=== PATIENT | male | born 1940 | race Caucasian/White ===

== ENCOUNTER 2017-06-06 01:16 | Inpatient (IN) | payer MEDICARE, OTHER, MEDICAID ==
[2017-06-06] MEDS: ONDANSETRON 4 MG INJ IV (02:00)
[2017-06-06] MEDS: SOD CHLORIDE 0.9% 1,000 ML IV ×2 (02:00→07:14)
[2017-06-06] MEDS: morphine 4 MG/ML VIAL IV (02:00)
[2017-06-06 03:02] LABS: ADD MAN DIFF? NO
[2017-06-06 03:06] LABS: WHITE BLOOD COUNT 8.7 10^3/ul (4.8-10.8)
[2017-06-06 03:06] LABS: BASOPHIL # 0.1 10^3/ul (0.0-0.1); BASOPHILS % 0.6 % (0.0-2.0); EOSINOPHILS # 1.4 10^3/ul (0.0-0.5); EOSINOPHILS % 16.1 % (0.0-7.0); HEMATOCRIT 41.7 % (42.0-52.0); LYMPHOCYTES # 1.5 10^3/ul (0.8-2.9); LYMPHOCYTES % 17.5 % (15.0-51.0); MEAN CORPUSCULAR HGB CONC 33.6 g/dl (32.0-37.0); MEAN CORPUSCULAR VOLUME 98.3 fl (82.0-101.0); MEAN PLATELET VOLUME 11.2 fl (7.4-10.4); MONOCYTES % 10.9 % (0.0-11.0); NEUTROPHIL # 4.7 10^3/ul (1.6-7.5); NEUTROPHILS % 54.2 % (39.0-77.0); PLATELET COUNT 198 10^3/UL (140-415); RED BLOOD COUNT 4.24 10^6/ul (4.70-6.10); RED CELL DISTRIBUTION WIDTH 21.9 % (11.5-14.5)
[2017-06-06 03:28] LABS: INR 1.42; PROTIME 17.6 Sec (11.9-14.9); PT RATIO 1.4
[2017-06-06 03:29] LABS: PARTIAL THROMBOPLASTIN TIME 31.7 Sec (25.0-35.0)
[2017-06-06 03:31] LABS: ANION GAP 17 (8-16); BLOOD UREA NITROGEN 17 mg/dl (7-20); CALCIUM 8.7 mg/dl (8.4-10.2); CARBON DIOXIDE 28 mmol/L (21-31); CHLORIDE 101 mmol/L (97-110); CREATININE 0.98 mg/dl (0.61-1.24); GLUCOSE 107 mg/dl (70-220); SODIUM 139 mmol/L (135-144)
[2017-06-06 03:34] LABS: LACTIC ACID 4.1 mmol/L (0.5-2.0)
[2017-06-06 03:36] LABS: POTASSIUM 7.2 mmol/L (3.5-5.1)
[2017-06-06 03:42] LABS: TROPONIN-I 0.041 ng/ml (0.00-0.12)
[2017-06-06] MEDS: FENTAnyl 50 MCG/ML VIAL IV (03:53)
[2017-06-06] MEDS: CALCIUM GLUCONATE 10% 1 GM in DEXTROSE 5% 100 ML IVPB (07:00)
[2017-06-06] MEDS: NA POLYST SULFON 15 GM/60 ML BTL PO (07:15)
[2017-06-06] MEDS: DILTIAZEM 25 MG INJ IV (07:15)
[2017-06-06] MEDS: DEXTROSE 50% 50 ML SYRINGE IV (07:15)
[2017-06-06] MEDS: ASPIRIN 81 MG TAB PO (07:16)
[2017-06-06] MEDS: INSULIN REGULAR, HUMAN 100 UNIT/1 ML 3ML VIAL IV (07:18)
[2017-06-06] MEDS ORDERED: ACETAMINOPHEN 325 MG TAB PO (07:30)
[2017-06-06] MEDS ORDERED: ONDANSETRON 4 MG INJ IV (07:30)
[2017-06-06 08:08] LABS: POTASSIUM 3.4 mmol/L (3.5-5.1)
[2017-06-06 08:11] LABS: CREATINE KINASE 50 IU/L (23-200)
[2017-06-06 08:23] LABS: B-TYPE NATRIURETIC PEPTIDE 8360 PG/ML (0-450); CK INDEX 3.7; TROPONIN-I 0.036 ng/ml (0.00-0.12)
[2017-06-06 08:26] LABS: CK-MB 1.84 ng/ml (0.0-2.4)
[2017-06-06 09:34] LABS: ADD UMIC YES; UR ASCORBIC ACID NEGATIVE (NEGATIVE); UR BILIRUBIN (Dip) NEGATIVE (NEGATIVE); UR BLOOD (Dip) NEGATIVE (NEGATIVE); UR CLARITY CLEAR (CLEAR); UR COLOR AMBER (YELLOW); UR GLUCOSE (Dip) 1+ mg/dL (NEGATIVE); UR KETONES (Dip) NEGATIVE (NEGATIVE); UR LEUKOCYTE ESTERASE (Dip) NEGATIVE Leu/ul (NEGATIVE); UR MUCUS FEW /HPF (NONE SEEN); UR NITRITE (Dip) NEGATIVE (NEGATIVE); UR RBC 1 /HPF (0-5); UR SPECIFIC GRAVITY (Dip) 1.019 (1.003-1.030); UR TOTAL PROTEIN (Dip) 1+ mg/dl (NEGATIVE); UR UROBILINOGEN (Dip) 2+ mg/dL (NEGATIVE); UR WBC 4 /HPF (0-5)
[2017-06-06 11:18] LABS: LACTIC ACID 2.5 mmol/L (0.5-2.0)
[2017-06-06] MEDS: ALBUTEROL/IPRATROPIUM (NEB) 3 ML AMP HHN ×3 (13:00→21:00)
[2017-06-06 13:19] LABS: CREATINE KINASE 53 IU/L (23-200)
[2017-06-06 13:20] LABS: ALANINE AMINOTRANSFERASE 82 IU/L (13-69); ALBUMIN 2.5 g/dl (3.3-4.9); ALKALINE PHOSPHATASE 116 IU/L (42-121); ASPARTATE AMINO TRANSFERASE 42 IU/L (15-46); BILIRUBIN,INDIRECT 1.1 mg/dl (0-1.1); BILIRUBIN,TOTAL 1.1 mg/dl (0.2-1.3); MAGNESIUM 1.2 mg/dl (1.7-2.5); PHOSPHORUS 2.7 mg/dl (2.5-4.9); TOTAL PROTEIN 5.5 g/dl (6.1-8.1)
[2017-06-06 13:31] LABS: CK INDEX 3.1; TROPONIN-I 0.024 ng/ml (0.00-0.12)
[2017-06-06 13:33] LABS: CK-MB 1.63 ng/ml (0.0-2.4)
[2017-06-06] MEDS: FUROSEMIDE 20 MG INJ IV (20:31)
[2017-06-06] MEDS: SALMETEROL/FLUTICASONE 250/50 INHA INH (21:46)
[2017-06-06] MEDS: APIXABAN 5 MG TABLET PO (21:47)
[2017-06-06] MEDS: ATORVASTATIN 10 MG TAB PO (21:47)
[2017-06-06] MEDS: METOPROLOL 50 MG TAB PO (21:47)
[2017-06-07] MEDS: DILTIAZEM 25 MG INJ IV (00:37)
[2017-06-07] MEDS: AMIODARONE 900 MG in DEXTROSE 5% 482 ML IV ×2 (00:56→21:27)
[2017-06-07] MEDS: ALBUTEROL/IPRATROPIUM (NEB) 3 ML AMP HHN ×5 (01:00→20:31)
[2017-06-07] MEDS: CYANOCOBALAMIN 100 MCG TAB PO (09:00)
[2017-06-07] MEDS: TIOTROPIUM 18 MCG CAPSULE INHA DEV INH (09:00)
[2017-06-07] MEDS ORDERED: FUROSEMIDE 20 MG TAB PO (09:00)
[2017-06-07] MEDS: SALMETEROL/FLUTICASONE 250/50 INHA INH ×2 (09:00→20:38)
[2017-06-07] MEDS: FUROSEMIDE 20 MG INJ IV ×2 (09:40→17:52)
[2017-06-07] MEDS: PANTOPRAZOLE (EC) 40 MG TAB PO (09:40)
[2017-06-07] MEDS: APIXABAN 5 MG TABLET PO (09:41)
[2017-06-07] MEDS: METOPROLOL 50 MG TAB PO (09:41)
[2017-06-07 12:51] LABS: ADD MAN DIFF? NO
[2017-06-07 12:54] LABS: ABNORMAL IP MESSAGE 1; BASOPHIL # 0.1 10^3/ul (0.0-0.1); BASOPHILS % 0.6 % (0.0-2.0); EOSINOPHILS # 1.8 10^3/ul (0.0-0.5); EOSINOPHILS % 18.1 % (0.0-7.0); HEMATOCRIT 37.3 % (42.0-52.0); HEMOGLOBIN 12.4 g/dl (14.0-18.0); LYMPHOCYTES # 1.5 10^3/ul (0.8-2.9); LYMPHOCYTES % 15.3 % (15.0-51.0); MEAN CORPUSCULAR HEMOGLOBIN 32.9 pg (29.0-33.0); MEAN CORPUSCULAR HGB CONC 33.2 g/dl (32.0-37.0); MEAN CORPUSCULAR VOLUME 98.9 fl (82.0-101.0); MEAN PLATELET VOLUME 11.5 fl (7.4-10.4); MONOCYTE # 0.9 10^3/ul (0.3-0.9); MONOCYTES % 9.3 % (0.0-11.0); NEUTROPHIL # 5.5 10^3/ul (1.6-7.5); NEUTROPHILS % 56.2 % (39.0-77.0); PLATELET COUNT 169 10^3/UL (140-415); POSITIVE DIFF @See below; RED BLOOD COUNT 3.77 10^6/ul (4.70-6.10); RED CELL DISTRIBUTION WIDTH 22.5 % (11.5-14.5)
[2017-06-07 12:54] LABS: WHITE BLOOD COUNT 9.7 10^3/ul (4.8-10.8)
[2017-06-07] MEDS: DIGOXIN 500 MCG INJ IV (13:08)
[2017-06-07] MEDS: FUROSEMIDE 40 MG INJ IM (13:08)
[2017-06-07] MEDS: FOLIC ACID 1 MG TAB PO (13:08)
[2017-06-07] MEDS: THIAMINE 100 MG TAB PO (13:09)
[2017-06-07] MEDS: DILTIAZEM (CD) 180 MG CAP PO (13:09)
[2017-06-07] MEDS: MONTELUKAST 10 MG TAB PO ×2 (13:10→20:36)
[2017-06-07] MEDS: SPIRONOLACTONE 25 MG TAB PO (13:10)
[2017-06-07 13:11] LABS: HEMOGLOBIN A1C 5.4 % (0-5.9)
[2017-06-07 13:13] LABS: ANION GAP 16 (8-16); BLOOD UREA NITROGEN 15 mg/dl (7-20); CALCIUM 8.6 mg/dl (8.4-10.2); CARBON DIOXIDE 24 mmol/L (21-31); CHLORIDE 103 mmol/L (97-110); CREATININE 0.96 mg/dl (0.61-1.24); GLUCOSE 134 mg/dl (70-220); POTASSIUM 3.6 mmol/L (3.5-5.1); SODIUM 139 mmol/L (135-144)
[2017-06-07] MEDS: POTASSIUM CHLORIDE (SR) 20 MEQ TAB PO (13:32)
[2017-06-07] MEDS: DIGOXIN 0.25 MG TAB PO (13:33)
[2017-06-07] MEDS: IBUPROFEN 600 MG TAB PO (15:17)
[2017-06-07] MEDS: ATORVASTATIN 10 MG TAB PO (20:36)
[2017-06-07] MEDS: METOPROLOL 25 MG TAB PO (20:39)
[2017-06-08] MEDS: PANTOPRAZOLE (EC) 40 MG TAB PO (05:31)
[2017-06-08] MEDS: FUROSEMIDE 20 MG INJ IV (05:37)
[2017-06-08] MEDS: ALBUTEROL/IPRATROPIUM (NEB) 3 ML AMP HHN ×2 (05:58→15:50)
[2017-06-08 07:50] LABS: ADD MAN DIFF? NO
[2017-06-08 08:01] LABS: ABNORMAL IP MESSAGE 1; BASOPHILS % 0.4 % (0.0-2.0); EOSINOPHILS % 21.9 % (0.0-7.0); HEMATOCRIT 32.2 % (42.0-52.0); HEMOGLOBIN 11.1 g/dl (14.0-18.0); LYMPHOCYTES % 21.7 % (15.0-51.0); MEAN CORPUSCULAR HEMOGLOBIN 33.5 pg (29.0-33.0); MEAN CORPUSCULAR HGB CONC 34.5 g/dl (32.0-37.0); MEAN CORPUSCULAR VOLUME 97.3 fl (82.0-101.0); MEAN PLATELET VOLUME 10.9 fl (7.4-10.4); MONOCYTE # 0.8 10^3/ul (0.3-0.9); MONOCYTES % 9.1 % (0.0-11.0); NEUTROPHIL # 4.2 10^3/ul (1.6-7.5); NEUTROPHILS % 46.3 % (39.0-77.0); PLATELET COUNT 150 10^3/UL (140-415); POSITIVE DIFF @See below; RED BLOOD COUNT 3.31 10^6/ul (4.70-6.10); RED CELL DISTRIBUTION WIDTH 22.2 % (11.5-14.5)
[2017-06-08] MEDS: SALMETEROL/FLUTICASONE 250/50 INHA INH ×2 (08:12→20:34)
[2017-06-08] MEDS: THIAMINE 100 MG TAB PO (08:13)
[2017-06-08] MEDS: FOLIC ACID 1 MG TAB PO (08:14)
[2017-06-08] MEDS: SPIRONOLACTONE 25 MG TAB PO (08:14)
[2017-06-08] MEDS: METOPROLOL 25 MG TAB PO ×2 (08:14→21:00)
[2017-06-08] MEDS: DILTIAZEM (CD) 180 MG CAP PO (08:14)
[2017-06-08 08:30] LABS: ANION GAP 13 (8-16); BLOOD UREA NITROGEN 17 mg/dl (7-20); CALCIUM 8.4 mg/dl (8.4-10.2); CARBON DIOXIDE 29 mmol/L (21-31); CHLORIDE 101 mmol/L (97-110); CREATININE 1.11 mg/dl (0.61-1.24); GLUCOSE 100 mg/dl (70-220); POTASSIUM 3.4 mmol/L (3.5-5.1); SODIUM 140 mmol/L (135-144)
[2017-06-08] MEDS: TIOTROPIUM 18 MCG CAPSULE INHA DEV INH (10:13)
[2017-06-08] MEDS: CYANOCOBALAMIN 100 MCG TAB PO (10:13)
[2017-06-08 11:40] LABS: LACTIC ACID 1.7 mmol/L (0.5-2.0)
[2017-06-08] MEDS: DIGOXIN 0.25 MG TAB PO (12:32)
[2017-06-08] MEDS: POTASSIUM CHLORIDE (SR) 20 MEQ TAB PO (14:03)
[2017-06-08] MEDS: FUROSEMIDE 20 MG TAB PO (14:04)
[2017-06-08] MEDS: MAGNESIUM SULFATE 6 GM in DEXTROSE 5% 100 ML IVPB (15:08)
[2017-06-08] MEDS: TESTOSTERONE CYPIONATE 200 MG/ML INJ IM (15:09)
[2017-06-08] MEDS: ATORVASTATIN 10 MG TAB PO (20:33)
[2017-06-08] MEDS: MONTELUKAST 10 MG TAB PO (20:33)
[2017-06-08] MEDS: IBUPROFEN 600 MG TAB PO (23:55)
[2017-06-09] MEDS: PANTOPRAZOLE (EC) 40 MG TAB PO (05:30)
[2017-06-09 07:27] LABS: ADD MAN DIFF? NO
[2017-06-09 07:30] LABS: ABNORMAL IP MESSAGE 1; BASOPHILS % 0.4 % (0.0-2.0); EOSINOPHILS # 2.2 10^3/ul (0.0-0.5); EOSINOPHILS % 28.2 % (0.0-7.0); HEMOGLOBIN 11.3 g/dl (14.0-18.0); LYMPHOCYTES # 1.3 10^3/ul (0.8-2.9); LYMPHOCYTES % 16.7 % (15.0-51.0); MEAN CORPUSCULAR HEMOGLOBIN 33.4 pg (29.0-33.0); MEAN CORPUSCULAR HGB CONC 34.2 g/dl (32.0-37.0); MEAN CORPUSCULAR VOLUME 97.6 fl (82.0-101.0); MEAN PLATELET VOLUME 10.9 fl (7.4-10.4); MONOCYTE # 0.8 10^3/ul (0.3-0.9); MONOCYTES % 10.6 % (0.0-11.0); NEUTROPHIL # 3.4 10^3/ul (1.6-7.5); NEUTROPHILS % 43.7 % (39.0-77.0); PLATELET COUNT 171 10^3/UL (140-415); POSITIVE DIFF @See below; RED BLOOD COUNT 3.38 10^6/ul (4.70-6.10); RED CELL DISTRIBUTION WIDTH 21.8 % (11.5-14.5)
[2017-06-09 07:30] LABS: WHITE BLOOD COUNT 7.8 10^3/ul (4.8-10.8)
[2017-06-09 07:59] LABS: ANION GAP 10 (8-16); BLOOD UREA NITROGEN 16 mg/dl (7-20); CALCIUM 8.4 mg/dl (8.4-10.2); CARBON DIOXIDE 29 mmol/L (21-31); CHLORIDE 101 mmol/L (97-110); CREATININE 0.88 mg/dl (0.61-1.24); GLUCOSE 87 mg/dl (70-220); POTASSIUM 4.1 mmol/L (3.5-5.1); SODIUM 136 mmol/L (135-144)
[2017-06-09 08:01] LABS: MAGNESIUM 1.7 mg/dl (1.7-2.5)
[2017-06-09] MEDS: DILTIAZEM (CD) 180 MG CAP PO (09:00)
[2017-06-09] MEDS: CYANOCOBALAMIN 100 MCG TAB PO (09:07)
[2017-06-09] MEDS: SPIRONOLACTONE 25 MG TAB PO (09:07)
[2017-06-09] MEDS: FUROSEMIDE 20 MG TAB PO (09:08)
[2017-06-09] MEDS: THIAMINE 100 MG TAB PO (09:08)
[2017-06-09] MEDS: TIOTROPIUM 18 MCG CAPSULE INHA DEV INH (09:08)
[2017-06-09] MEDS: FOLIC ACID 1 MG TAB PO (09:08)
[2017-06-09] MEDS: SALMETEROL/FLUTICASONE 250/50 INHA INH ×2 (09:09→21:11)
[2017-06-09] MEDS: METOPROLOL 25 MG TAB PO ×2 (09:11→21:12)
[2017-06-09] MEDS: DIGOXIN 0.25 MG TAB PO (12:28)
[2017-06-09] MEDS: FUROSEMIDE 40 MG INJ IV (15:41)
[2017-06-09] MEDS: predniSONE 50 MG TAB PO (15:41)
[2017-06-09] MEDS: ALBUTEROL/IPRATROPIUM (NEB) 3 ML AMP HHN ×2 (17:00→20:18)
[2017-06-09] MEDS: APIXABAN 5 MG TABLET PO (21:11)
[2017-06-09] MEDS: ATORVASTATIN 10 MG TAB PO (21:11)
[2017-06-09] MEDS: MONTELUKAST 10 MG TAB PO (21:11)
[2017-06-10] MEDS: ALBUTEROL/IPRATROPIUM (NEB) 3 ML AMP HHN ×6 (00:28→20:59)
[2017-06-10] MEDS: PANTOPRAZOLE (EC) 40 MG TAB PO (05:28)
[2017-06-10] MEDS: SALMETEROL/FLUTICASONE 250/50 INHA INH ×2 (09:25→21:36)
[2017-06-10] MEDS: FUROSEMIDE 20 MG TAB PO (09:26)
[2017-06-10] MEDS: FOLIC ACID 1 MG TAB PO (09:26)
[2017-06-10] MEDS: APIXABAN 5 MG TABLET PO ×2 (09:26→21:37)
[2017-06-10] MEDS: METOPROLOL 25 MG TAB PO ×2 (09:26→21:00)
[2017-06-10] MEDS: DILTIAZEM (CD) 180 MG CAP PO (09:27)
[2017-06-10] MEDS: predniSONE 50 MG TAB PO (09:27)
[2017-06-10] MEDS: CYANOCOBALAMIN 100 MCG TAB PO (09:27)
[2017-06-10] MEDS: THIAMINE 100 MG TAB PO (09:27)
[2017-06-10] MEDS: SPIRONOLACTONE 25 MG TAB PO (09:27)
[2017-06-10 09:30] LABS: ALANINE AMINOTRANSFERASE 47 IU/L (13-69); ALBUMIN 2.4 g/dl (3.3-4.9); ALBUMIN/GLOBULIN RATIO 0.75; ALKALINE PHOSPHATASE 100 IU/L (42-121); ANION GAP 10 (8-16); ASPARTATE AMINO TRANSFERASE 31 IU/L (15-46); BILIRUBIN,INDIRECT 0.5 mg/dl (0-1.1); BILIRUBIN,TOTAL 0.5 mg/dl (0.2-1.3); BLOOD UREA NITROGEN 17 mg/dl (7-20); CALCIUM 9.2 mg/dl (8.4-10.2); CARBON DIOXIDE 34 mmol/L (21-31); CHLORIDE 96 mmol/L (97-110); CREATININE 0.93 mg/dl (0.61-1.24); GLUCOSE 122 mg/dl (70-220); MAGNESIUM 1.4 mg/dl (1.7-2.5); POTASSIUM 4.1 mmol/L (3.5-5.1); SODIUM 136 mmol/L (135-144); TOTAL PROTEIN 5.6 g/dl (6.1-8.1)
[2017-06-10] MEDS: TIOTROPIUM 18 MCG CAPSULE INHA DEV INH (12:07)
[2017-06-10] MEDS: DIGOXIN 0.25 MG TAB PO (12:08)
[2017-06-10] MEDS: AMOXICILLIN/CLAV 875 MG TAB PO (17:45)
[2017-06-10] MEDS: ATORVASTATIN 10 MG TAB PO (21:37)
[2017-06-10] MEDS: MONTELUKAST 10 MG TAB PO (21:37)
[2017-06-11] MEDS: ALBUTEROL/IPRATROPIUM (NEB) 3 ML AMP HHN ×6 (00:47→20:31)
[2017-06-11] MEDS: PANTOPRAZOLE (EC) 40 MG TAB PO (05:30)
[2017-06-11] MEDS: predniSONE 50 MG TAB PO (09:35)
[2017-06-11] MEDS: APIXABAN 5 MG TABLET PO ×2 (09:35→21:10)
[2017-06-11] MEDS: CYANOCOBALAMIN 100 MCG TAB PO (09:35)
[2017-06-11] MEDS: THIAMINE 100 MG TAB PO (09:35)
[2017-06-11] MEDS: AMOXICILLIN/CLAV 875 MG TAB PO ×2 (09:35→21:10)
[2017-06-11] MEDS: METOPROLOL 25 MG TAB PO ×2 (09:36→21:00)
[2017-06-11] MEDS: SPIRONOLACTONE 25 MG TAB PO (09:36)
[2017-06-11] MEDS: FUROSEMIDE 20 MG TAB PO (09:36)
[2017-06-11] MEDS: FOLIC ACID 1 MG TAB PO (09:36)
[2017-06-11] MEDS: TIOTROPIUM 18 MCG CAPSULE INHA DEV INH (09:37)
[2017-06-11] MEDS: DILTIAZEM (CD) 180 MG CAP PO (09:37)
[2017-06-11] MEDS: SALMETEROL/FLUTICASONE 250/50 INHA INH ×2 (09:37→21:10)
[2017-06-11] MEDS ORDERED: ACETAMINOPHEN 325 MG TAB PO (11:30)
[2017-06-11] MEDS: IBUPROFEN 600 MG TAB PO (11:39)
[2017-06-11] MEDS: DIGOXIN 0.25 MG TAB PO (11:40)
[2017-06-11] MEDS: ATORVASTATIN 10 MG TAB PO (21:10)
[2017-06-11] MEDS: MONTELUKAST 10 MG TAB PO (21:10)
[2017-06-12] MEDS: ALBUTEROL/IPRATROPIUM (NEB) 3 ML AMP HHN ×6 (00:45→20:33)
[2017-06-12] MEDS: AMOXICILLIN/CLAV 875 MG TAB PO ×2 (09:44→21:01)
[2017-06-12] MEDS: METOPROLOL 25 MG TAB PO ×2 (09:44→21:02)
[2017-06-12] MEDS: FUROSEMIDE 20 MG TAB PO (09:45)
[2017-06-12] MEDS: predniSONE 50 MG TAB PO (09:45)
[2017-06-12] MEDS: FOLIC ACID 1 MG TAB PO (09:45)
[2017-06-12] MEDS: APIXABAN 5 MG TABLET PO ×2 (09:45→21:01)
[2017-06-12] MEDS: TIOTROPIUM 18 MCG CAPSULE INHA DEV INH (09:46)
[2017-06-12] MEDS: DILTIAZEM (CD) 180 MG CAP PO (09:46)
[2017-06-12] MEDS: SALMETEROL/FLUTICASONE 250/50 INHA INH ×2 (09:46→21:01)
[2017-06-12] MEDS: DIGOXIN 0.25 MG TAB PO (13:28)
[2017-06-12] MEDS: ATORVASTATIN 10 MG TAB PO (21:01)
[2017-06-12] MEDS: MONTELUKAST 10 MG TAB PO (21:01)
[2017-06-13] MEDS: ALBUTEROL/IPRATROPIUM (NEB) 3 ML AMP HHN ×4 (00:59→13:00)
[2017-06-13] MEDS: AMOXICILLIN/CLAV 875 MG TAB PO (09:53)
[2017-06-13] MEDS: APIXABAN 5 MG TABLET PO (09:59)
[2017-06-13] MEDS: DILTIAZEM (CD) 180 MG CAP PO (10:00)
[2017-06-13] MEDS: FUROSEMIDE 20 MG TAB PO (10:00)
[2017-06-13] MEDS: METOPROLOL 25 MG TAB PO (10:01)
[2017-06-13] MEDS: predniSONE 50 MG TAB PO (10:01)
[2017-06-13] MEDS: FOLIC ACID 1 MG TAB PO (10:01)
[2017-06-13] MEDS: SALMETEROL/FLUTICASONE 250/50 INHA INH (10:02)
[2017-06-13] MEDS: TIOTROPIUM 18 MCG CAPSULE INHA DEV INH (11:21)
[2017-06-13] MEDS: IBUPROFEN 600 MG TAB PO (11:28)
[2017-06-13] MEDS: DIGOXIN 0.25 MG TAB PO (13:24)
== END 2017-06-13 16:45 | DRG 190 ==
LOC: TEL 06-07 08:37 → E/R 01:16 → MS3 07:20
DX: J44.1 Chronic obstructive pulmonary disease with (acute) exacerbation (principal); I50.33 Acute on chronic diastolic (congestive) heart failure; E87.2 Acidosis; S22.028A Other fracture of second thoracic vertebra, initial encounter for closed fracture; S22.038A Other fracture of third thoracic vertebra, initial encounter for closed fracture; E87.5 Hyperkalemia; I11.0 Hypertensive heart disease with heart failure; W19.XXXA Unspecified fall, initial encounter; I48.0 Paroxysmal atrial fibrillation; Z72.0 Tobacco use; Z91.81 History of falling
CPT/HCPCS: 70450; 71045; 72072; 72100; 72128; 72170; 80048; 80053; 80076; 81001; 82550; 82553; 83036; 83605; 83735; 83880; 84100; 84132; 84443; 84484; 85025; 85610; 85730; 93005; 93971; 94640; 94664; 96374; 96375; 97110; 97116; 97162; 97530; 99291-25; J1940

== ENCOUNTER 2017-08-27 07:10 | Emergency (ER) | payer MEDICARE, OTHER, MEDICAID ==
[2017-08-27] MEDS: morphine 10 MG INJ IV (08:39)
== END 2017-08-27 14:36 ==
LOC: E/R 07:10
DX: S39.92XA Unspecified injury of lower back, initial encounter (principal); I10 Essential (primary) hypertension; W19.XXXA Unspecified fall, initial encounter; Y92.9 Unspecified place or not applicable; Z87.891 Personal history of nicotine dependence
CPT/HCPCS: 96374; 99285-25

== ENCOUNTER 2018-02-28 09:01 | Inpatient (IN) | payer MEDICARE, OTHER ==
[2018-02-28] MEDS ORDERED: DILTIAZEM 25 MG INJ (09:16)
[2018-02-28] MEDS: DILTIAZEM 25 MG INJ IV (09:32)
[2018-02-28 09:45] LABS: ADD MAN DIFF? NO
[2018-02-28 09:51] LABS: BASOPHIL # 0.1 10^3/ul (0.0-0.1); BASOPHILS % 0.3 % (0.0-2.0); EOSINOPHILS # 0.2 10^3/ul (0.0-0.5); EOSINOPHILS % 0.9 % (0.0-7.0); HEMATOCRIT 38.2 % (42.0-52.0); HEMOGLOBIN 13.3 g/dl (14.0-18.0); LYMPHOCYTES # 1.5 10^3/ul (0.8-2.9); LYMPHOCYTES % 7.7 % (15.0-51.0); MEAN CORPUSCULAR HEMOGLOBIN 29.1 pg (29.0-33.0); MEAN CORPUSCULAR HGB CONC 34.8 g/dl (32.0-37.0); MEAN CORPUSCULAR VOLUME 83.6 fl (82.0-101.0); MEAN PLATELET VOLUME 10.5 fl (7.4-10.4); MONOCYTE # 1.5 10^3/ul (0.3-0.9); MONOCYTES % 7.6 % (0.0-11.0); NEUTROPHILS % 82.3 % (39.0-77.0); PLATELET COUNT 183 10^3/UL (140-415); RED BLOOD COUNT 4.57 10^6/ul (4.70-6.10)
[2018-02-28 09:51] LABS: WHITE BLOOD COUNT 19.4 10^3/ul (4.8-10.8)
[2018-02-28 10:07] LABS: ALANINE AMINOTRANSFERASE 19 IU/L (13-69); ALKALINE PHOSPHATASE 165 IU/L (42-121); ANION GAP 16 (8-16); ASPARTATE AMINO TRANSFERASE 32 IU/L (15-46); BLOOD UREA NITROGEN 43 mg/dl (7-20); CALCIUM 9.6 mg/dl (8.4-10.2); CARBON DIOXIDE 26 mmol/L (21-31); CHLORIDE 101 mmol/L (97-110); CREATININE 1.47 mg/dl (0.61-1.24); GLUCOSE 84 mg/dl (70-220); POTASSIUM 4.6 mmol/L (3.5-5.1); SODIUM 138 mmol/L (135-144)
[2018-02-28 10:10] LABS: INR 2.46; PARTIAL THROMBOPLASTIN TIME 45.1 Sec (23.0-35.0); PROTIME 27.3 Sec (11.9-14.9); PT RATIO 2.1
[2018-02-28 10:28] LABS: B-TYPE NATRIURETIC PEPTIDE 16200 PG/ML (0-450); TROPONIN-I < 0.012 ng/ml (0.000-0.120)
[2018-02-28 10:35] LABS: ALBUMIN 2.6 g/dl (3.3-4.9); ALBUMIN/GLOBULIN RATIO 0.74; BILIRUBIN,INDIRECT 0.9 mg/dl (0-1.1); BILIRUBIN,TOTAL 3.1 mg/dl (0.2-1.3); TOTAL PROTEIN 6.1 g/dl (6.1-8.1)
[2018-02-28] MEDS: DILTIAZEM-D5W 125MG/125ML DRIP 125 ML IV (10:47)
[2018-02-28] MEDS: CEFTRIAXONE 1 GM/50 ML (PMX) 50 ML IVPB (12:29)
[2018-02-28] MEDS ORDERED: VANCOMYCIN IV PER PHARMACY XX (13:00)
[2018-02-28] MEDS ORDERED: NACL 0.9% 3 ML SYG IV (13:00)
[2018-02-28] MEDS ORDERED: ACETAMINOPHEN 650 MG SUPP PR (13:00)
[2018-02-28] MEDS ORDERED: HYDROCODONE/APAP (5/325) TAB PO ×2 (13:00)
[2018-02-28] MEDS ORDERED: ONDANSETRON 4 MG INJ IV ×2 (13:00)
[2018-02-28] MEDS ORDERED: SENNA TAB PO (13:00)
[2018-02-28] MEDS ORDERED: BISACODYL 10 MG SUPP PR (13:00)
[2018-02-28] MEDS ORDERED: ACETAMINOPHEN 325 MG TAB PO ×3 (13:00)
[2018-02-28] MEDS ORDERED: morphine 2 MG INJ IV (13:00)
[2018-02-28] MEDS ORDERED: FUROSEMIDE 40 MG INJ (13:19)
[2018-02-28] MEDS: VANCOMYCIN 1 GM (PMX) 250 ML IVPB (13:25)
[2018-02-28] MEDS: FUROSEMIDE 40 MG INJ IV (13:25)
[2018-02-28] MEDS: CEFEPIME 2GM/50 ML (PMX) 50 ML IVPB ×2 (15:37→23:03)
[2018-02-28 15:51] LABS: LACTIC ACID 1.9 mmol/L (0.5-2.0)
[2018-02-28] MEDS: DIGOXIN 500 MCG INJ IV ×2 (18:17→23:37)
[2018-02-28 18:52] LABS: CREATINE KINASE 43 IU/L (23-200)
[2018-02-28 19:05] LABS: CK INDEX 4.3; CK-MB 1.83 ng/ml (0.0-2.4); TROPONIN-I < 0.012 ng/ml (0.000-0.120)
[2018-02-28] MEDS: ALBUTEROL/IPRATROPIUM (NEB) 3 ML AMP HHN ×3 (20:36→21:45)
[2018-02-28] MEDS ORDERED: FLUOCINONIDE 0.05% 60 GM OINT TOP (21:00)
[2018-02-28] MEDS ORDERED: APIXABAN 5 MG TABLET PO (21:00)
[2018-02-28 21:02] LABS: AADO2 Arterial 121.4 mmHg (7.0-24.0); Allen Test ACCEPTAB; Arterial Base Excess 1.2 mmol/L (-3.0-3); Arterial Blood Gas Oxygen Sat 98.8 mmHG (95.0-100.0); Arterial COHb 0.7 % (0.0-3.0); Arterial Fraction of Oxyhgb 97.9 % (93.0-99.0); Arterial MetHb 0.2 % (0.0-1.5); Arterial Total Hemglobin 13.3 g/dl (12.0-18.0); Arterial pCO2 47.5 mmhg (35-45); MODE MASK - SIMPLE; Site Right Radial
[2018-02-28] MEDS: DILTIAZEM 30 MG TAB PO (21:38)
[2018-02-28] MEDS: AZITHROMYCIN 250 MG in SOD CHLORIDE 0.9% 250 ML IVPB (21:46)
[2018-02-28] MEDS: FLUOCINONIDE 0.05% 15 GM OINT TOP (21:48)
[2018-02-28] MEDS: ATORVASTATIN 10 MG TAB PO (21:48)
[2018-02-28] MEDS: DOCUSATE SODIUM 100 MG CAP PO (21:49)
[2018-03-01 00:22] LABS: SODIUM,URINE RANDOM 109 mmol/L (30-90)
[2018-03-01] MEDS: ALBUTEROL/IPRATROPIUM (NEB) 3 ML AMP HHN ×9 (00:45→21:19)
[2018-03-01 00:46] LABS: CREATININE,URINE RANDOM 38.73 mg/dl (20-370); PROTEIN/CREAT RATIO 0.43 RATIO
[2018-03-01 01:26] LABS: CREATINE KINASE 35 IU/L (23-200)
[2018-03-01 01:37] LABS: CK INDEX 4.2; CK-MB 1.46 ng/ml (0.0-2.4); TROPONIN-I < 0.012 ng/ml (0.000-0.120)
[2018-03-01] MEDS: METOPROLOL 5 MG INJ IV ×2 (02:27→07:05)
[2018-03-01 05:04] LABS: ADD MAN DIFF? NO
[2018-03-01 05:06] LABS: BASOPHILS % 0.3 % (0.0-2.0); EOSINOPHILS # 0.3 10^3/ul (0.0-0.5); EOSINOPHILS % 1.9 % (0.0-7.0); HEMATOCRIT 32.2 % (42.0-52.0); HEMOGLOBIN 11.4 g/dl (14.0-18.0); LYMPHOCYTES # 1.1 10^3/ul (0.8-2.9); LYMPHOCYTES % 7.3 % (15.0-51.0); MEAN CORPUSCULAR HEMOGLOBIN 29.1 pg (29.0-33.0); MEAN CORPUSCULAR HGB CONC 35.4 g/dl (32.0-37.0); MEAN CORPUSCULAR VOLUME 82.1 fl (82.0-101.0); MEAN PLATELET VOLUME 10.4 fl (7.4-10.4); MONOCYTE # 1.3 10^3/ul (0.3-0.9); MONOCYTES % 8.9 % (0.0-11.0); NEUTROPHIL # 11.7 10^3/ul (1.6-7.5); NEUTROPHILS % 80.6 % (39.0-77.0); PLATELET COUNT 142 10^3/UL (140-415); RED BLOOD COUNT 3.92 10^6/ul (4.70-6.10); RED CELL DISTRIBUTION WIDTH 19.8 % (11.5-14.5)
[2018-03-01 05:06] LABS: WHITE BLOOD COUNT 14.5 10^3/ul (4.8-10.8)
[2018-03-01 05:14] LABS: Allen Test ACCEPTAB; Arterial Base Excess 2.7 mmol/L (-3.0-3); Arterial Blood Gas Oxygen Sat 97.1 mmHG (95.0-100.0); Arterial COHb 1.2 % (0.0-3.0); Arterial Fraction of Oxyhgb 95.7 % (93.0-99.0); Arterial HCO3 26.9 mmol/L (22.0-26.0); Arterial MetHb 0.2 % (0.0-1.5); Arterial Total Hemglobin 12.2 g/dl (12.0-18.0); MODE NASAL CANNULA; Site Right Radial
[2018-03-01 05:22] LABS: INR 2.17; PROTIME 24.7 Sec (11.9-14.9); PT RATIO 1.9
[2018-03-01 05:23] LABS: PARTIAL THROMBOPLASTIN TIME 46.8 Sec (23.0-35.0)
[2018-03-01 05:27] LABS: HEMOGLOBIN A1C 5.8 % (0-5.9)
[2018-03-01 05:33] LABS: ALANINE AMINOTRANSFERASE 30 IU/L (13-69); ALBUMIN 1.6 g/dl (3.3-4.9); ALBUMIN/GLOBULIN RATIO 0.59; ALKALINE PHOSPHATASE 119 IU/L (42-121); ANION GAP 13 (8-16); ASPARTATE AMINO TRANSFERASE 28 IU/L (15-46); BILIRUBIN,INDIRECT 0.7 mg/dl (0-1.1); BLOOD UREA NITROGEN 46 mg/dl (7-20); CALCIUM 8.8 mg/dl (8.4-10.2); CARBON DIOXIDE 25 mmol/L (21-31); CHLORIDE 103 mmol/L (97-110); CREATININE 1.44 mg/dl (0.61-1.24); GLUCOSE 76 mg/dl (70-220); HDL CHOLESTEROL 9 mg/dl (31-75); MAGNESIUM 1.3 mg/dl (1.7-2.5); PHOSPHORUS 4.1 mg/dl (2.5-4.9); POTASSIUM 4.2 mmol/L (3.5-5.1); SODIUM 137 mmol/L (135-144); TOTAL PROTEIN 4.3 g/dl (6.1-8.1); TRIGLYCERIDES 101 mg/dl (0-149)
[2018-03-01 05:34] LABS: CHOLESTEROL < 50 mg/dl (100-200)
[2018-03-01 05:34] LABS: LACTIC ACID 1.4 mmol/L (0.5-2.0)
[2018-03-01 05:38] LABS: CREATINE KINASE 30 IU/L (23-200)
[2018-03-01] MEDS: DILTIAZEM 30 MG TAB PO ×3 (05:41→21:24)
[2018-03-01 05:42] LABS: T4 (THYROXINE) 3.5 ug/dl (5.5-11.0)
[2018-03-01 05:43] LABS: CK INDEX 4.3; TROPONIN-I < 0.012 ng/ml (0.000-0.120)
[2018-03-01 05:44] LABS: FREE T4 (FREE THYROXINE) 1.68 ng/dl (0.78-2.44)
[2018-03-01] MEDS: PANTOPRAZOLE 40 MG INJ IV (05:48)
[2018-03-01] MEDS: CEFEPIME 2GM/50 ML (PMX) 50 ML IVPB ×3 (05:48→21:27)
[2018-03-01] MEDS: FUROSEMIDE 40 MG INJ IV (05:49)
[2018-03-01 05:58] LABS: FREE THYROXINE INDEX (Calc) 2.28 ug/ml (0.65-3.89); T3 UPTAKE > 65.0 % (23.5-40.5)
[2018-03-01 05:59] LABS: TRIIODOTHYRONINE 0.42 ng/ml (0.97-1.69)
[2018-03-01] MEDS: VANCOMYCIN 1.25 GM in SOD CHLORIDE 0.9% 250 ML IVPB (06:20)
[2018-03-01 08:22] LABS: AADO2 Arterial 198.3 mmHg (7.0-24.0); Allen Test ACCEPTAB; Arterial Base Excess 0 mmol/L (-3.0-3); Arterial Blood Gas Oxygen Sat 98.4 mmHG (95.0-100.0); Arterial COHb 0.7 % (0.0-3.0); Arterial Fraction of Oxyhgb 97.4 % (93.0-99.0); Arterial HCO3 25.2 mmol/L (22.0-26.0); Arterial MetHb 0.3 % (0.0-1.5); Arterial Total Hemglobin 13.5 g/dl (12.0-18.0); Arterial pCO2 43.2 mmhg (35-45); MODE MASK - SIMPLE; Site Left Radial
[2018-03-01] MEDS: FLUTICASONE/VILANTEROL 100-25 INH (09:02)
[2018-03-01] MEDS: CYANOCOBALAMIN 100 MCG TAB PO (09:03)
[2018-03-01] MEDS: TIOTROPIUM 18 MCG CAPSULE INHA DEV INH (09:04)
[2018-03-01] MEDS: DOCUSATE SODIUM 100 MG CAP PO ×2 (09:04→20:39)
[2018-03-01] MEDS: MULTIVITAMINS THERAPEUTIC TAB PO (09:05)
[2018-03-01] MEDS: DILTIAZEM-D5W 125MG/125ML DRIP 125 ML IV ×2 (09:27→21:21)
[2018-03-01 09:30] LABS: URIC ACID 7.7 mg/dl (3.1-7.9)
[2018-03-01] MEDS: FLUOCINONIDE 0.05% 15 GM OINT TOP ×2 (11:00→20:42)
[2018-03-01] MEDS: MAGNESIUM SULFATE 4 GM/100 ML 100 ML IVPB (15:55)
[2018-03-01] MEDS: AZITHROMYCIN 250 MG in SOD CHLORIDE 0.9% 250 ML IVPB (18:37)
[2018-03-01] MEDS: ATORVASTATIN 10 MG TAB PO (20:39)
[2018-03-01] MEDS ORDERED: HEPARIN 5,000 UNIT/0.5 ML VIAL SC (21:00)
[2018-03-02] MEDS: ALBUTEROL/IPRATROPIUM (NEB) 3 ML AMP HHN ×9 (01:00→20:58)
[2018-03-02] MEDS: PANTOPRAZOLE 40 MG INJ IV (05:56)
[2018-03-02] MEDS: DILTIAZEM 30 MG TAB PO (05:57)
[2018-03-02] MEDS: CEFEPIME 2GM/50 ML (PMX) 50 ML IVPB ×3 (06:28→21:31)
[2018-03-02 06:35] LABS: ADD MAN DIFF? NO
[2018-03-02 06:37] LABS: BASOPHILS % 0.3 % (0.0-2.0); EOSINOPHILS # 0.3 10^3/ul (0.0-0.5); EOSINOPHILS % 2.5 % (0.0-7.0); HEMATOCRIT 31.3 % (42.0-52.0); HEMOGLOBIN 11.2 g/dl (14.0-18.0); LYMPHOCYTES % 8.2 % (15.0-51.0); MEAN CORPUSCULAR HEMOGLOBIN 29.2 pg (29.0-33.0); MEAN CORPUSCULAR HGB CONC 35.8 g/dl (32.0-37.0); MEAN CORPUSCULAR VOLUME 81.5 fl (82.0-101.0); MONOCYTE # 1.3 10^3/ul (0.3-0.9); MONOCYTES % 11.3 % (0.0-11.0); NEUTROPHIL # 8.9 10^3/ul (1.6-7.5); NEUTROPHILS % 76.7 % (39.0-77.0); PLATELET COUNT 111 10^3/UL (140-415); RED BLOOD COUNT 3.84 10^6/ul (4.70-6.10)
[2018-03-02 06:37] LABS: WHITE BLOOD COUNT 11.6 10^3/ul (4.8-10.8)
[2018-03-02 06:59] LABS: INR 1.65; PROTIME 19.9 Sec (11.9-14.9); PT RATIO 1.6
[2018-03-02 07:23] LABS: ANION GAP 12 (8-16); BLOOD UREA NITROGEN 43 mg/dl (7-20); CALCIUM 8.8 mg/dl (8.4-10.2); CARBON DIOXIDE 28 mmol/L (21-31); CHLORIDE 100 mmol/L (97-110); CREATININE 1.38 mg/dl (0.61-1.24); GLUCOSE 96 mg/dl (70-220); POTASSIUM 3.9 mmol/L (3.5-5.1); SODIUM 136 mmol/L (135-144)
[2018-03-02] MEDS: FLUTICASONE/VILANTEROL 100-25 INH (09:00)
[2018-03-02] MEDS: VANCOMYCIN 1.25 GM in SOD CHLORIDE 0.9% 250 ML IVPB (09:02)
[2018-03-02] MEDS: MULTIVITAMINS THERAPEUTIC TAB PO (09:03)
[2018-03-02] MEDS: CYANOCOBALAMIN 100 MCG TAB PO (09:03)
[2018-03-02] MEDS: DOCUSATE SODIUM 100 MG CAP PO ×2 (09:03→21:30)
[2018-03-02] MEDS: DILTIAZEM-D5W 125MG/125ML DRIP 125 ML IV (09:30)
[2018-03-02 09:35] LABS: MAGNESIUM 2.1 mg/dl (1.7-2.5)
[2018-03-02] MEDS: TIOTROPIUM 18 MCG CAPSULE INHA DEV INH (10:03)
[2018-03-02] MEDS: FLUOCINONIDE 0.05% 15 GM OINT TOP ×2 (10:04→21:30)
[2018-03-02] MEDS: DIGOXIN 500 MCG INJ IV (12:39)
[2018-03-02] MEDS: METOPROLOL 5 MG INJ IV (15:00)
[2018-03-02] MEDS: AZITHROMYCIN 250 MG in SOD CHLORIDE 0.9% 250 ML IVPB (18:06)
[2018-03-02] MEDS: ATORVASTATIN 10 MG TAB PO (21:29)
[2018-03-02] MEDS: APIXABAN 5 MG TABLET PO (21:30)
[2018-03-02] MEDS: ATENOLOL 25 MG TAB PO (21:30)
[2018-03-03] MEDS: ALBUTEROL/IPRATROPIUM (NEB) 3 ML AMP HHN ×6 (01:00→21:13)
[2018-03-03 05:16] LABS: ADD MAN DIFF? NO
[2018-03-03 05:20] LABS: ABNORMAL IP MESSAGE 1; BASOPHILS % 0.2 % (0.0-2.0); EOSINOPHILS # 0.7 10^3/ul (0.0-0.5); EOSINOPHILS % 5.3 % (0.0-7.0); HEMOGLOBIN 11.1 g/dl (14.0-18.0); LYMPHOCYTES # 0.8 10^3/ul (0.8-2.9); LYMPHOCYTES % 6.7 % (15.0-51.0); MEAN CORPUSCULAR HEMOGLOBIN 29.6 pg (29.0-33.0); MEAN CORPUSCULAR HGB CONC 35.8 g/dl (32.0-37.0); MEAN CORPUSCULAR VOLUME 82.7 fl (82.0-101.0); MEAN PLATELET VOLUME 10.7 fl (7.4-10.4); MONOCYTE # 1.4 10^3/ul (0.3-0.9); MONOCYTES % 11.7 % (0.0-11.0); NEUTROPHIL # 9.3 10^3/ul (1.6-7.5); NEUTROPHILS % 75.3 % (39.0-77.0); PLATELET COUNT 88 10^3/UL (140-415); POSITIVE DIFF @See below; RED BLOOD COUNT 3.75 10^6/ul (4.70-6.10); RED CELL DISTRIBUTION WIDTH 20.2 % (11.5-14.5)
[2018-03-03 05:20] LABS: WHITE BLOOD COUNT 12.3 10^3/ul (4.8-10.8)
[2018-03-03 05:39] LABS: INR 1.45; PROTIME 17.9 Sec (11.9-14.9); PT RATIO 1.4
[2018-03-03 05:57] LABS: ANION GAP 11 (8-16); BLOOD UREA NITROGEN 39 mg/dl (7-20); CARBON DIOXIDE 28 mmol/L (21-31); CHLORIDE 101 mmol/L (97-110); CREATININE 1.15 mg/dl (0.61-1.24); GLUCOSE 99 mg/dl (70-220); POTASSIUM 3.6 mmol/L (3.5-5.1); SODIUM 136 mmol/L (135-144)
[2018-03-03] MEDS: PANTOPRAZOLE 40 MG INJ IV (06:01)
[2018-03-03] MEDS: CEFEPIME 2GM/50 ML (PMX) 50 ML IVPB ×3 (06:01→21:51)
[2018-03-03 06:57] LABS: AADO2 Arterial 88.7 mmHg (7.0-24.0); Allen Test ACCEPTAB; Arterial Base Excess 3.3 mmol/L (-3.0-3); Arterial Blood Gas Oxygen Sat 90.2 mmHG (95.0-100.0); Arterial Fraction of Oxyhgb 89.1 % (93.0-99.0); Arterial HCO3 26.9 mmol/L (22.0-26.0); Arterial MetHb 0.2 % (0.0-1.5); Arterial Total Hemglobin 12.1 g/dl (12.0-18.0); Arterial pCO2 37.5 mmhg (35-45); MODE ROOM AIR; Site Left Radial
[2018-03-03 08:42] LABS: VANCOMYCIN,TROUGH 14.8 ug/ml (10.0-20.0)
[2018-03-03] MEDS: ATENOLOL 25 MG TAB PO ×2 (09:00→21:51)
[2018-03-03] MEDS: MULTIVITAMINS THERAPEUTIC TAB PO (09:00)
[2018-03-03] MEDS: TIOTROPIUM 18 MCG CAPSULE INHA DEV INH (09:05)
[2018-03-03] MEDS: FLUTICASONE/VILANTEROL 100-25 INH (09:05)
[2018-03-03] MEDS: FLUOCINONIDE 0.05% 15 GM OINT TOP ×2 (09:06→21:51)
[2018-03-03] MEDS: CYANOCOBALAMIN 100 MCG TAB PO (09:06)
[2018-03-03] MEDS: DOCUSATE SODIUM 100 MG CAP PO ×2 (09:07→21:50)
[2018-03-03] MEDS: DILTIAZEM-D5W 125MG/125ML DRIP 125 ML IV (09:30)
[2018-03-03] MEDS: VANCOMYCIN 1.25 GM in SOD CHLORIDE 0.9% 250 ML IVPB (09:39)
[2018-03-03] MEDS: APIXABAN 5 MG TABLET PO ×2 (09:39→21:50)
[2018-03-03] MEDS: AZITHROMYCIN 250 MG in SOD CHLORIDE 0.9% 250 ML IVPB (18:59)
[2018-03-03] MEDS: ATORVASTATIN 10 MG TAB PO (21:51)
[2018-03-04] MEDS: ALBUTEROL/IPRATROPIUM (NEB) 3 ML AMP HHN ×6 (01:00→20:12)
[2018-03-04] MEDS: PANTOPRAZOLE 40 MG INJ IV ×2 (05:19→18:04)
[2018-03-04] MEDS: CEFEPIME 2GM/50 ML (PMX) 50 ML IVPB ×3 (05:22→20:45)
[2018-03-04 06:16] LABS: ADD MAN DIFF? NO
[2018-03-04 06:34] LABS: ABNORMAL IP MESSAGE 1; BASOPHIL # 0.1 10^3/ul (0.0-0.1); BASOPHILS % 0.3 % (0.0-2.0); EOSINOPHILS # 0.7 10^3/ul (0.0-0.5); EOSINOPHILS % 4.5 % (0.0-7.0); HEMATOCRIT 33.2 % (42.0-52.0); HEMOGLOBIN 11.7 g/dl (14.0-18.0); LYMPHOCYTES # 0.9 10^3/ul (0.8-2.9); LYMPHOCYTES % 5.9 % (15.0-51.0); MEAN CORPUSCULAR HEMOGLOBIN 29.3 pg (29.0-33.0); MEAN CORPUSCULAR HGB CONC 35.2 g/dl (32.0-37.0); MEAN PLATELET VOLUME 11.6 fl (7.4-10.4); MONOCYTE # 1.7 10^3/ul (0.3-0.9); MONOCYTES % 11.2 % (0.0-11.0); NEUTROPHIL # 11.6 10^3/ul (1.6-7.5); NEUTROPHILS % 77.2 % (39.0-77.0); PLATELET COUNT 88 10^3/UL (140-415); POSITIVE DIFF @See below; RED CELL DISTRIBUTION WIDTH 20.4 % (11.5-14.5)
[2018-03-04 06:55] LABS: ANION GAP 9 (8-16); BLOOD UREA NITROGEN 33 mg/dl (7-20); CALCIUM 8.8 mg/dl (8.4-10.2); CARBON DIOXIDE 27 mmol/L (21-31); CHLORIDE 104 mmol/L (97-110); CREATININE 0.84 mg/dl (0.61-1.24); GLUCOSE 116 mg/dl (70-220); POTASSIUM 3.4 mmol/L (3.5-5.1); SODIUM 137 mmol/L (135-144)
[2018-03-04 07:26] LABS: PHOSPHORUS 2.3 mg/dl (2.5-4.9)
[2018-03-04 07:26] LABS: MAGNESIUM 1.5 mg/dl (1.7-2.5)
[2018-03-04] MEDS: FLUOCINONIDE 0.05% 15 GM OINT TOP ×2 (09:00→20:45)
[2018-03-04] MEDS: FLUTICASONE/VILANTEROL 100-25 INH (09:00)
[2018-03-04] MEDS: TIOTROPIUM 18 MCG CAPSULE INHA DEV INH (09:37)
[2018-03-04] MEDS: DOCUSATE SODIUM 100 MG CAP PO ×2 (09:37→20:44)
[2018-03-04] MEDS: CYANOCOBALAMIN 100 MCG TAB PO (09:37)
[2018-03-04] MEDS: APIXABAN 5 MG TABLET PO ×2 (09:38→20:45)
[2018-03-04] MEDS: MULTIVITAMINS THERAPEUTIC TAB PO (09:40)
[2018-03-04] MEDS: ATENOLOL 25 MG TAB PO ×2 (09:41→20:45)
[2018-03-04] MEDS: VANCOMYCIN 1.25 GM in SOD CHLORIDE 0.9% 250 ML IVPB (10:49)
[2018-03-04] MEDS: MAGNESIUM SULFATE 2 GM/50 ML 50 ML IVPB (12:25)
[2018-03-04] MEDS: POTASSIUM CHLORIDE 100 ML IVPB (14:26)
[2018-03-04] MEDS: AZITHROMYCIN 250 MG in SOD CHLORIDE 0.9% 250 ML IVPB (18:32)
[2018-03-04] MEDS: ATORVASTATIN 10 MG TAB PO (20:44)
[2018-03-04 20:52] LABS: NIL 0.05 IU/mL; QUANTIFERON(R)-TB GOLD NEGATIVE (NEGATIVE); TB-NIL <0.00 IU/mL
[2018-03-05] MEDS: ALBUTEROL/IPRATROPIUM (NEB) 3 ML AMP HHN ×6 (01:10→21:05)
[2018-03-05] MEDS: CEFEPIME 2GM/50 ML (PMX) 50 ML IVPB ×3 (05:46→21:23)
[2018-03-05 06:18] LABS: ADD MAN DIFF? NO
[2018-03-05 06:37] LABS: WHITE BLOOD COUNT 14.2 10^3/ul (4.8-10.8)
[2018-03-05 06:37] LABS: ABNORMAL IP MESSAGE 1; BASOPHIL # 0.1 10^3/ul (0.0-0.1); BASOPHILS % 0.6 % (0.0-2.0); EOSINOPHILS # 0.7 10^3/ul (0.0-0.5); EOSINOPHILS % 5.2 % (0.0-7.0); HEMATOCRIT 33.8 % (42.0-52.0); LYMPHOCYTES # 1.1 10^3/ul (0.8-2.9); LYMPHOCYTES % 7.7 % (15.0-51.0); MEAN CORPUSCULAR HEMOGLOBIN 29.2 pg (29.0-33.0); MEAN CORPUSCULAR HGB CONC 35.5 g/dl (32.0-37.0); MEAN CORPUSCULAR VOLUME 82.2 fl (82.0-101.0); MEAN PLATELET VOLUME 11.8 fl (7.4-10.4); MONOCYTE # 1.8 10^3/ul (0.3-0.9); MONOCYTES % 12.9 % (0.0-11.0); NEUTROPHIL # 10.2 10^3/ul (1.6-7.5); NEUTROPHILS % 71.7 % (39.0-77.0); PLATELET COUNT 96 10^3/UL (140-415); POSITIVE DIFF @See below; RED BLOOD COUNT 4.11 10^6/ul (4.70-6.10); RED CELL DISTRIBUTION WIDTH 21.2 % (11.5-14.5)
[2018-03-05 06:58] LABS: MAGNESIUM 1.7 mg/dl (1.7-2.5)
[2018-03-05 07:11] LABS: ANION GAP 8 (8-16); BLOOD UREA NITROGEN 29 mg/dl (7-20); CARBON DIOXIDE 26 mmol/L (21-31); CHLORIDE 107 mmol/L (97-110); CREATININE 0.73 mg/dl (0.61-1.24); GLUCOSE 87 mg/dl (70-220); POTASSIUM 3.9 mmol/L (3.5-5.1); SODIUM 137 mmol/L (135-144)
[2018-03-05] MEDS: APIXABAN 5 MG TABLET PO ×2 (08:37→21:25)
[2018-03-05] MEDS: TIOTROPIUM 18 MCG CAPSULE INHA DEV INH (08:37)
[2018-03-05] MEDS: MULTIVITAMINS THERAPEUTIC TAB PO (08:37)
[2018-03-05] MEDS: DOCUSATE SODIUM 100 MG CAP PO ×2 (08:39→21:25)
[2018-03-05] MEDS: CYANOCOBALAMIN 100 MCG TAB PO (08:39)
[2018-03-05] MEDS: ATENOLOL 25 MG TAB PO ×2 (08:39→21:00)
[2018-03-05] MEDS: FLUOCINONIDE 0.05% 15 GM OINT TOP ×2 (11:18→21:25)
[2018-03-05] MEDS: FLUTICASONE/VILANTEROL 100-25 INH (11:18)
[2018-03-05] MEDS: MAGNESIUM SULFATE 2 GM/50 ML 50 ML IVPB (12:01)
[2018-03-05 12:20] LABS: ALANINE AMINOTRANSFERASE 29 IU/L (13-69); ALBUMIN 1.9 g/dl (3.3-4.9); ALKALINE PHOSPHATASE 145 IU/L (42-121); ASPARTATE AMINO TRANSFERASE 49 IU/L (15-46); BILIRUBIN,INDIRECT 1.5 mg/dl (0-1.1); BILIRUBIN,TOTAL 3.2 mg/dl (0.2-1.3); TOTAL PROTEIN 5.2 g/dl (6.1-8.1)
[2018-03-05] MEDS: DILTIAZEM (CD) 120 MG CAP PO (12:59)
[2018-03-05] MEDS ORDERED: morphine LIQ (10 MG/5 ML) CUP PO (13:24)
[2018-03-05] MEDS: SODIUM PHOSPHATE 15 MMOL in SOD CHLORIDE 0.9% 250 ML IV (14:56)
[2018-03-05] MEDS: CEFEPIME 1GM/50 ML (PMX) 50 ML IVPB (21:24)
[2018-03-05] MEDS: ATORVASTATIN 10 MG TAB PO (21:25)
[2018-03-06] MEDS: ALBUTEROL/IPRATROPIUM (NEB) 3 ML AMP HHN ×6 (00:51→21:56)
[2018-03-06] MEDS: PANTOPRAZOLE (EC) 40 MG TAB PO (06:27)
[2018-03-06 06:47] LABS: ADD MAN DIFF? NO
[2018-03-06 06:51] LABS: ABNORMAL IP MESSAGE 1; BASOPHIL # 0.1 10^3/ul (0.0-0.1); BASOPHILS % 0.7 % (0.0-2.0); EOSINOPHILS # 0.6 10^3/ul (0.0-0.5); EOSINOPHILS % 4.2 % (0.0-7.0); HEMATOCRIT 31.5 % (42.0-52.0); HEMOGLOBIN 10.9 g/dl (14.0-18.0); LYMPHOCYTES # 1.3 10^3/ul (0.8-2.9); LYMPHOCYTES % 9.2 % (15.0-51.0); MEAN CORPUSCULAR HGB CONC 34.6 g/dl (32.0-37.0); MEAN CORPUSCULAR VOLUME 83.8 fl (82.0-101.0); MEAN PLATELET VOLUME 11.8 fl (7.4-10.4); MONOCYTES % 14.1 % (0.0-11.0); NEUTROPHIL # 10.1 10^3/ul (1.6-7.5); NEUTROPHILS % 70.2 % (39.0-77.0); PLATELET COUNT 128 10^3/UL (140-415); POSITIVE DIFF @See below; RED BLOOD COUNT 3.76 10^6/ul (4.70-6.10); RED CELL DISTRIBUTION WIDTH 21.9 % (11.5-14.5)
[2018-03-06 06:51] LABS: WHITE BLOOD COUNT 14.4 10^3/ul (4.8-10.8)
[2018-03-06 07:19] LABS: ANION GAP 8 (8-16); BLOOD UREA NITROGEN 33 mg/dl (7-20); CALCIUM 9.3 mg/dl (8.4-10.2); CARBON DIOXIDE 26 mmol/L (21-31); CHLORIDE 108 mmol/L (97-110); CREATININE 0.78 mg/dl (0.61-1.24); GLUCOSE 74 mg/dl (70-220); POTASSIUM 3.7 mmol/L (3.5-5.1); SODIUM 138 mmol/L (135-144)
[2018-03-06 07:43] LABS: MAGNESIUM 1.9 mg/dl (1.7-2.5)
[2018-03-06 07:43] LABS: PHOSPHORUS 2.6 mg/dl (2.5-4.9)
[2018-03-06] MEDS: DOCUSATE SODIUM 100 MG CAP PO ×2 (08:35→21:26)
[2018-03-06] MEDS: DILTIAZEM (CD) 120 MG CAP PO (08:35)
[2018-03-06] MEDS: APIXABAN 5 MG TABLET PO ×2 (08:35→21:26)
[2018-03-06] MEDS: MULTIVITAMINS THERAPEUTIC TAB PO (08:35)
[2018-03-06] MEDS: CYANOCOBALAMIN 100 MCG TAB PO (08:36)
[2018-03-06] MEDS: ATENOLOL 25 MG TAB PO ×2 (08:36→21:26)
[2018-03-06] MEDS: FLUTICASONE/VILANTEROL 100-25 INH (08:37)
[2018-03-06] MEDS: CEFEPIME 1GM/50 ML (PMX) 50 ML IVPB ×2 (08:37→21:26)
[2018-03-06] MEDS: FLUOCINONIDE 0.05% 15 GM OINT TOP ×2 (08:37→21:26)
[2018-03-06] MEDS: TIOTROPIUM 18 MCG CAPSULE INHA DEV INH (08:38)
[2018-03-06] MEDS: MAGNESIUM HYDROXIDE 30ML CUP PO (08:38)
[2018-03-06] MEDS ORDERED: VANCOMYCIN IV PER PHARMACY XX (12:30)
[2018-03-06] MEDS: VANCOMYCIN 1.25 GM in SOD CHLORIDE 0.9% 250 ML IVPB (14:25)
[2018-03-06 14:55] LABS: HAAIG REFLEX REFLEX FILED
[2018-03-06 15:59] LABS: HEPATITIS B SURFACE ANTIGEN NEGATIVE (NEGATIVE)
[2018-03-06 16:17] LABS: HEPATITIS B CORE ANTIBODY REACTIVE (NEGATIVE); HEPATITIS C VIRAL ANTIBODY NEGATIVE (NEGATIVE)
[2018-03-07] MEDS: ALBUTEROL/IPRATROPIUM (NEB) 3 ML AMP HHN ×5 (02:05→20:24)
[2018-03-07] MEDS: PANTOPRAZOLE (EC) 40 MG TAB PO (06:27)
[2018-03-07 06:56] LABS: ADD MAN DIFF? NO
[2018-03-07 06:59] LABS: WHITE BLOOD COUNT 13.9 10^3/ul (4.8-10.8)
[2018-03-07 06:59] LABS: ABNORMAL IP MESSAGE 1; BASOPHIL # 0.1 10^3/ul (0.0-0.1); BASOPHILS % 0.8 % (0.0-2.0); EOSINOPHILS # 0.6 10^3/ul (0.0-0.5); EOSINOPHILS % 4.5 % (0.0-7.0); HEMATOCRIT 33.5 % (42.0-52.0); HEMOGLOBIN 11.2 g/dl (14.0-18.0); LYMPHOCYTES # 1.2 10^3/ul (0.8-2.9); LYMPHOCYTES % 8.5 % (15.0-51.0); MEAN CORPUSCULAR HEMOGLOBIN 28.9 pg (29.0-33.0); MEAN CORPUSCULAR HGB CONC 33.4 g/dl (32.0-37.0); MEAN CORPUSCULAR VOLUME 86.3 fl (82.0-101.0); MEAN PLATELET VOLUME 11.9 fl (7.4-10.4); MONOCYTE # 1.9 10^3/ul (0.3-0.9); MONOCYTES % 13.3 % (0.0-11.0); NEUTROPHIL # 9.9 10^3/ul (1.6-7.5); NEUTROPHILS % 71.3 % (39.0-77.0); PLATELET COUNT 163 10^3/UL (140-415); POSITIVE DIFF @See below; RED BLOOD COUNT 3.88 10^6/ul (4.70-6.10); RED CELL DISTRIBUTION WIDTH 22.5 % (11.5-14.5)
[2018-03-07 07:18] LABS: ALANINE AMINOTRANSFERASE 23 IU/L (13-69); ALBUMIN 1.9 g/dl (3.3-4.9); ALBUMIN/GLOBULIN RATIO 0.51; ALKALINE PHOSPHATASE 153 IU/L (42-121); ANION GAP 8 (8-16); ASPARTATE AMINO TRANSFERASE 57 IU/L (15-46); BILIRUBIN,INDIRECT 1.6 mg/dl (0-1.1); BILIRUBIN,TOTAL 4.1 mg/dl (0.2-1.3); BLOOD UREA NITROGEN 33 mg/dl (7-20); CALCIUM 9.7 mg/dl (8.4-10.2); CARBON DIOXIDE 28 mmol/L (21-31); CHLORIDE 109 mmol/L (97-110); CREATININE 0.77 mg/dl (0.61-1.24); GLUCOSE 93 mg/dl (70-220); POTASSIUM 3.9 mmol/L (3.5-5.1); SODIUM 141 mmol/L (135-144); TOTAL PROTEIN 5.6 g/dl (6.1-8.1)
[2018-03-07 07:19] LABS: AMMONIA < 9 umol/l (9-30)
[2018-03-07 07:21] LABS: MAGNESIUM 1.7 mg/dl (1.7-2.5)
[2018-03-07 07:21] LABS: PHOSPHORUS 2.3 mg/dl (2.5-4.9)
[2018-03-07] MEDS: ATENOLOL 25 MG TAB PO ×2 (08:11→21:00)
[2018-03-07] MEDS: CYANOCOBALAMIN 100 MCG TAB PO (08:12)
[2018-03-07] MEDS: MULTIVITAMINS THERAPEUTIC TAB PO (08:12)
[2018-03-07] MEDS: APIXABAN 5 MG TABLET PO ×2 (08:12→21:05)
[2018-03-07] MEDS: DILTIAZEM (CD) 120 MG CAP PO (08:12)
[2018-03-07] MEDS: FLUTICASONE/VILANTEROL 100-25 INH (08:13)
[2018-03-07] MEDS: DOCUSATE SODIUM 100 MG CAP PO ×2 (08:13→21:05)
[2018-03-07] MEDS: FLUOCINONIDE 0.05% 15 GM OINT TOP ×2 (08:14→21:12)
[2018-03-07] MEDS: TIOTROPIUM 18 MCG CAPSULE INHA DEV INH (08:14)
[2018-03-07] MEDS: CEFEPIME 1GM/50 ML (PMX) 50 ML IVPB ×2 (08:14→21:05)
[2018-03-07 10:03] LABS: LACTATE DEHYDROGENASE 780 IU/L (313-618)
[2018-03-07] MEDS ORDERED: BISACODYL (EC) 5 MG TAB PO (10:30)
[2018-03-07 12:12] LABS: ALPHA FETOPROTEIN 1.58 IU/L (0.00-7.21)
[2018-03-07] MEDS: VANCOMYCIN 1.25 GM in SOD CHLORIDE 0.9% 250 ML IVPB (15:23)
[2018-03-07] MEDS: POTASSIUM PHOSPHATE 15 MM in SOD CHLORIDE 0.9% 250 ML IVPB (18:22)
[2018-03-07] MEDS: POLYETHYLENE GLYCOL 17 GM PACKET PO (21:05)
[2018-03-08] MEDS: METOPROLOL 5 MG INJ IV ×3 (00:07→18:00)
[2018-03-08] MEDS ORDERED: LEVALBUTEROL (NEB) 1.25 MG/0.5 ML AMP HHN (02:00)
[2018-03-08] MEDS: ACETYLCYSTEINE 20% 4 ML VIAL NEB ×4 (02:09→19:19)
[2018-03-08] MEDS: ALBUTEROL/IPRATROPIUM (NEB) 3 ML AMP HHN (02:09)
[2018-03-08] MEDS: DILTIAZEM 25 MG INJ IV (02:14)
[2018-03-08] MEDS: DOCUSATE SODIUM 100 MG CAP PO ×3 (05:35→20:54)
[2018-03-08] MEDS: PANTOPRAZOLE (EC) 40 MG TAB PO (05:35)
[2018-03-08 07:01] LABS: ADD MAN DIFF? NO
[2018-03-08 07:04] LABS: ABNORMAL IP MESSAGE 1; BASOPHIL # 0.1 10^3/ul (0.0-0.1); BASOPHILS % 0.9 % (0.0-2.0); EOSINOPHILS # 0.3 10^3/ul (0.0-0.5); EOSINOPHILS % 1.7 % (0.0-7.0); HEMATOCRIT 31.1 % (42.0-52.0); HEMOGLOBIN 10.4 g/dl (14.0-18.0); LYMPHOCYTES # 1.1 10^3/ul (0.8-2.9); LYMPHOCYTES % 6.9 % (15.0-51.0); MEAN CORPUSCULAR HEMOGLOBIN 29.5 pg (29.0-33.0); MEAN CORPUSCULAR HGB CONC 33.4 g/dl (32.0-37.0); MEAN CORPUSCULAR VOLUME 88.4 fl (82.0-101.0); MEAN PLATELET VOLUME 11.8 fl (7.4-10.4); MONOCYTE # 1.9 10^3/ul (0.3-0.9); MONOCYTES % 11.8 % (0.0-11.0); NEUTROPHIL # 12.6 10^3/ul (1.6-7.5); NEUTROPHILS % 76.9 % (39.0-77.0); NUCLEATED RED BLOOD CELLS% 0.1 /100WBC (0.0-0.0); PLATELET COUNT 206 10^3/UL (140-415); POSITIVE DIFF @See below; RED BLOOD COUNT 3.52 10^6/ul (4.70-6.10); RED CELL DISTRIBUTION WIDTH 23.7 % (11.5-14.5)
[2018-03-08 07:04] LABS: WHITE BLOOD COUNT 16.4 10^3/ul (4.8-10.8)
[2018-03-08 07:24] LABS: INR 1.39; PROTIME 17.3 Sec (11.9-14.9); PT RATIO 1.4
[2018-03-08 07:25] LABS: PARTIAL THROMBOPLASTIN TIME 36.5 Sec (23.0-35.0)
[2018-03-08 07:29] LABS: ALANINE AMINOTRANSFERASE 30 IU/L (13-69); ALBUMIN/GLOBULIN RATIO 0.52; ALKALINE PHOSPHATASE 149 IU/L (42-121); ANION GAP 11 (8-16); ASPARTATE AMINO TRANSFERASE 57 IU/L (15-46); BILIRUBIN,INDIRECT 1.5 mg/dl (0-1.1); BILIRUBIN,TOTAL 4.2 mg/dl (0.2-1.3); BLOOD UREA NITROGEN 34 mg/dl (7-20); CARBON DIOXIDE 27 mmol/L (21-31); CHLORIDE 110 mmol/L (97-110); GLUCOSE 80 mg/dl (70-220); POTASSIUM 4.1 mmol/L (3.5-5.1); SODIUM 144 mmol/L (135-144); TOTAL PROTEIN 5.8 g/dl (6.1-8.1)
[2018-03-08 07:36] LABS: PHOSPHORUS 3.1 mg/dl (2.5-4.9)
[2018-03-08 07:36] LABS: MAGNESIUM 1.7 mg/dl (1.7-2.5)
[2018-03-08] MEDS: LEVALBUTEROL (NEB) 1.25 MG/0.5 ML AMP HHN ×3 (08:16→19:18)
[2018-03-08] MEDS: CYANOCOBALAMIN 100 MCG TAB PO (09:00)
[2018-03-08] MEDS: FLUTICASONE/VILANTEROL 100-25 INH (09:00)
[2018-03-08] MEDS: APIXABAN 5 MG TABLET PO ×2 (09:00→20:54)
[2018-03-08] MEDS: TIOTROPIUM 18 MCG CAPSULE INHA DEV INH (09:00)
[2018-03-08] MEDS: ATENOLOL 25 MG TAB PO (09:00)
[2018-03-08] MEDS: MULTIVITAMINS THERAPEUTIC TAB PO (09:00)
[2018-03-08] MEDS: DILTIAZEM (CD) 120 MG CAP PO (09:00)
[2018-03-08] MEDS: POLYETHYLENE GLYCOL 17 GM PACKET PO ×2 (09:00→21:00)
[2018-03-08] MEDS: CEFEPIME 1GM/50 ML (PMX) 50 ML IVPB ×2 (09:23→20:54)
[2018-03-08] MEDS: FLUOCINONIDE 0.05% 15 GM OINT TOP ×2 (09:52→21:02)
[2018-03-08] MEDS: DIGOXIN 0.125 MG TAB PO (12:27)
[2018-03-08] MEDS: SOD CHLORIDE 0.9% 1,000 ML IV (12:27)
[2018-03-08] MEDS: VANCOMYCIN 1.25 GM in SOD CHLORIDE 0.9% 250 ML IVPB (14:29)
[2018-03-09] MEDS: METOPROLOL 5 MG INJ IV ×3 (00:27→11:55)
[2018-03-09] MEDS: LEVALBUTEROL (NEB) 1.25 MG/0.5 ML AMP HHN ×3 (01:15→13:20)
[2018-03-09] MEDS: ACETYLCYSTEINE 20% 4 ML VIAL NEB ×3 (01:15→13:20)
[2018-03-09] MEDS: PANTOPRAZOLE (EC) 40 MG TAB PO (05:23)
[2018-03-09 06:04] LABS: ADD MAN DIFF? NO
[2018-03-09 06:15] LABS: WHITE BLOOD COUNT 12.8 10^3/ul (4.8-10.8)
[2018-03-09 06:15] LABS: ABNORMAL IP MESSAGE 1; BASOPHIL # 0.1 10^3/ul (0.0-0.1); BASOPHILS % 0.9 % (0.0-2.0); EOSINOPHILS # 0.4 10^3/ul (0.0-0.5); EOSINOPHILS % 3.5 % (0.0-7.0); HEMATOCRIT 31.6 % (42.0-52.0); HEMOGLOBIN 10.4 g/dl (14.0-18.0); LYMPHOCYTES # 1.2 10^3/ul (0.8-2.9); LYMPHOCYTES % 9.4 % (15.0-51.0); MEAN CORPUSCULAR HEMOGLOBIN 29.9 pg (29.0-33.0); MEAN CORPUSCULAR HGB CONC 32.9 g/dl (32.0-37.0); MEAN CORPUSCULAR VOLUME 90.8 fl (82.0-101.0); MEAN PLATELET VOLUME 11.4 fl (7.4-10.4); MONOCYTE # 1.3 10^3/ul (0.3-0.9); MONOCYTES % 9.8 % (0.0-11.0); NEUTROPHIL # 9.6 10^3/ul (1.6-7.5); NEUTROPHILS % 75.1 % (39.0-77.0); NUCLEATED RED BLOOD CELLS% 0.2 /100WBC (0.0-0.0); PLATELET COUNT 246 10^3/UL (140-415); POSITIVE DIFF @See below; RED BLOOD COUNT 3.48 10^6/ul (4.70-6.10)
[2018-03-09 06:40] LABS: ALANINE AMINOTRANSFERASE 23 IU/L (13-69); ALBUMIN 2.3 g/dl (3.3-4.9); ALKALINE PHOSPHATASE 150 IU/L (42-121); ANION GAP 9 (8-16); ASPARTATE AMINO TRANSFERASE 59 IU/L (15-46); BILIRUBIN,INDIRECT 1.2 mg/dl (0-1.1); BILIRUBIN,TOTAL 3.7 mg/dl (0.2-1.3); BLOOD UREA NITROGEN 36 mg/dl (7-20); CALCIUM 9.9 mg/dl (8.4-10.2); CARBON DIOXIDE 27 mmol/L (21-31); CHLORIDE 115 mmol/L (97-110); CREATININE 1.04 mg/dl (0.61-1.24); GLUCOSE 72 mg/dl (70-220); SODIUM 147 mmol/L (135-144); TOTAL PROTEIN 6.1 g/dl (6.1-8.1)
[2018-03-09 06:45] LABS: MAGNESIUM 1.8 mg/dl (1.7-2.5)
[2018-03-09] MEDS: SOD CHLORIDE 0.9% 1,000 ML IV (08:30)
[2018-03-09] MEDS: DOCUSATE SODIUM 100 MG CAP PO (08:57)
[2018-03-09] MEDS: DILTIAZEM (CD) 120 MG CAP PO (08:57)
[2018-03-09] MEDS: APIXABAN 5 MG TABLET PO (08:57)
[2018-03-09] MEDS: MULTIVITAMINS THERAPEUTIC TAB PO (08:58)
[2018-03-09] MEDS: POLYETHYLENE GLYCOL 17 GM PACKET PO (08:58)
[2018-03-09] MEDS: CYANOCOBALAMIN 100 MCG TAB PO (08:58)
[2018-03-09] MEDS: CEFEPIME 1GM/50 ML (PMX) 50 ML IVPB (09:01)
[2018-03-09] MEDS: FLUTICASONE/VILANTEROL 100-25 INH (09:02)
[2018-03-09] MEDS: TIOTROPIUM 18 MCG CAPSULE INHA DEV INH (09:02)
[2018-03-09] MEDS: FLUOCINONIDE 0.05% 15 GM OINT TOP (09:14)
[2018-03-09] MEDS: METHYLPREDNISOLONE 40 MG INJ IV ×2 (11:55→17:59)
[2018-03-09] MEDS: DIGOXIN 0.125 MG TAB PO (13:00)
[2018-03-09] MEDS ORDERED: DILTIAZEM 25 MG INJ IV (14:30)
[2018-03-09] MEDS: DIGOXIN 500 MCG INJ IV (14:50)
[2018-03-09 14:58] LABS: VANCOMYCIN,TROUGH 20.7 ug/ml (10.0-20.0)
[2018-03-09] MEDS: VANCOMYCIN 1.25 GM in SOD CHLORIDE 0.9% 250 ML IVPB (15:00)
[2018-03-10] MEDS ORDERED: VANCOMYCIN 750 MG in SOD CHLORIDE 0.9% 150 ML IVPB (06:00)
[2018-03-10] MEDS ORDERED: FLUTICASONE/VILANTEROL 100-25 INH (09:00)
[2018-03-10 16:07] LABS: HAPTOGLOBIN 195 mg/dL (43-212)
== END 2018-03-09 18:45 | DRG 871 ==
LOC: TEL 03-04 02:03 → E/R 09:01 → 6WM 12:47 → ICU 17:20
DX: A41.9 Sepsis, unspecified organism (principal); J96.21 Acute and chronic respiratory failure with hypoxia; J18.9 Pneumonia, unspecified organism; N17.9 Acute kidney failure, unspecified; I13.0 Hypertensive heart and chronic kidney disease with heart failure and stage 1 through stage 4 chronic kidney disease, or unspecified chronic kidney disease; I50.30 Unspecified diastolic (congestive) heart failure; D68.9 Coagulation defect, unspecified; I48.91 Unspecified atrial fibrillation; J44.1 Chronic obstructive pulmonary disease with (acute) exacerbation; N18.2 Chronic kidney disease, stage 2 (mild); J84.10 Pulmonary fibrosis, unspecified; R13.10 Dysphagia, unspecified; R74.0 Nonspecific elevation of levels of transaminase and lactic acid dehydrogenase [LDH]; I25.10 Atherosclerotic heart disease of native coronary artery without angina pectoris; F17.200 Nicotine dependence, unspecified, uncomplicated; R65.20 Severe sepsis without septic shock; E83.39 Other disorders of phosphorus metabolism
CPT/HCPCS: 36415; 36600; 71045; 71250; 76705; 76775; 80048; 80053; 80061; 80076; 80202; 81003; 82105; 82140; 82550; 82553; 82570; 82803; 83010; 83036; 83605; 83615; 83735; 83880; 84100; 84300; 84436; 84439; 84443; 84479; 84480; 84484; 84560; 85025; 85610; 85730; 86480; 86635; 86704; 86709; 86803; 87040; 87081; 87086; 87340; 89190; 89220; 92526; 92610; 93005; 93306; 94640; 94664; 94667; 94668; 96374; 96375; 97110; 97162; 97530; 99291-25

== ENCOUNTER 2018-03-21 18:16 | Day surgery (SDC) | payer OTHER ==
[~2018-03-21 18:16] MED LIST: CA CHLORIDE 10% 10 ML SYRINGE
[2018-03-21] MEDS ORDERED: ETOMIDATE 20 MG INJ (19:23)
[2018-03-21] MEDS ORDERED: CEFAZOLIN 1 GM INJ (19:54)
[2018-03-21] MEDS ORDERED: PHENYLephrine (100 MCG/ML) 5ML SYG (20:04)
[2018-03-21] MEDS: LIDOCAINE 1% (MDV) 20 ML INJ (20:19)
[2018-03-21] MEDS: HEPARIN 1000 UNITS/ML 10 ML INJ (20:20)
== END 2018-03-21 21:42 ==
LOC: SDS 18:16
DX: I12.0 Hypertensive chronic kidney disease with stage 5 chronic kidney disease or end stage renal disease (principal); N18.6 End stage renal disease; J44.9 Chronic obstructive pulmonary disease, unspecified; I25.10 Atherosclerotic heart disease of native coronary artery without angina pectoris; I48.91 Unspecified atrial fibrillation; F03.90 Unspecified dementia, unspecified severity, without behavioral disturbance, psychotic disturbance, mood disturbance, and anxiety
CPT/HCPCS: 36558; 71045

== ENCOUNTER 2018-03-30 11:39 | Inpatient (IN) | payer MEDICARE ==
[2018-03-30] MEDS: ALBUTEROL HFA 8 GM INHALER INH ×3 (13:00→21:26)
[2018-03-30] MEDS ORDERED: ALBUTEROL HFA 8 GM INHALER INH (13:00)
[2018-03-30] MEDS ORDERED: ACETAMINOPHEN 650MG/20.3ML CUP PO (13:00)
[2018-03-30] MEDS ORDERED: ONDANSETRON 4 MG INJ IV (13:00)
[2018-03-30] MEDS ORDERED: DOPamine-D5W 1.6 MG/ML 250 ML (13:00)
[2018-03-30] MEDS: SOD CHLORIDE 0.9% 500 ML IV (13:29)
[2018-03-30 13:30] LABS: DIGOXIN 1.5 ng/ml (1.0-2.0)
[2018-03-30] MEDS: DOPamine-D5W 1.6 MG/ML 250 ML IV ×2 (13:55→20:31)
[2018-03-30 14:06] LABS: AADO2 Arterial 341.3 mmHg (7.0-24.0); Allen Test ACCEPTAB; Arterial Blood Gas Oxygen Sat 99.6 mmHG (95.0-100.0); Arterial COHb 0.4 % (0.0-3.0); Arterial Fraction of Oxyhgb 98.8 % (93.0-99.0); Arterial HCO3 23.6 mmol/L (22.0-26.0); Arterial MetHb 0.4 % (0.0-1.5); Arterial Total Hemglobin 8.6 g/dl (12.0-18.0); MODE VENT - AC; Site Right Radial
[2018-03-30] MEDS: DEXTROSE 5%-0.45% NACL 1,000 ML IV (14:20)
[2018-03-30] MEDS ORDERED: VANCOMYCIN IV PER PHARMACY XX (14:30)
[2018-03-30] MEDS: CEFEPIME 2GM/50 ML (PMX) 50 ML IVPB (15:32)
[2018-03-30] MEDS: CASPOFUNGIN 50 MG in SOD CHLORIDE 0.9% 250 ML IVPB (15:36)
[2018-03-30] MEDS: ATROPINE 1 MG/10 ML SYRINGE IV (16:00)
[2018-03-30] MEDS: CA CHLORIDE 10% 10 ML SYRINGE IV (16:00)
[2018-03-30] MEDS: NA BICARBONATE 8.4% 50 ML SYG IV (16:00)
[2018-03-30] MEDS: METHYLPREDNISOLONE 125 MG INJ IV (17:43)
[2018-03-30] MEDS: VANCOMYCIN 1.5 GM in SOD CHLORIDE 0.9% 250 ML IVPB (17:43)
[2018-03-30 18:55] LABS: LACTIC ACID 1.4 mmol/L (0.5-2.0)
[2018-03-30 19:31] LABS: CREATINE KINASE 56 IU/L (23-200)
[2018-03-30 19:45] LABS: CK INDEX 14.6; CK-MB 8.19 ng/ml (0.0-2.4)
[2018-03-30 19:49] LABS: TROPONIN-I 0.496 ng/ml (0.000-0.120)
[2018-03-30] MEDS ORDERED: HEPARIN 5,000 UNIT/0.5 ML VIAL (20:23)
[2018-03-30] MEDS: MICONAZOLE 2% 15 GM CR TOP (20:32)
[2018-03-30] MEDS: HEPARIN SODIUM 5,000 UNIT/ML VIAL SC (20:34)
[2018-03-30 20:56] LABS: AADO2 Arterial 169.7 mmHg (7.0-24.0); Allen Test ACCEPTAB; Arterial Base Excess -3.5 mmol/L (-3.0-3); Arterial Blood Gas Oxygen Sat 98.7 mmHG (95.0-100.0); Arterial COHb 0.1 % (0.0-3.0); Arterial Fraction of Oxyhgb 98.3 % (93.0-99.0); Arterial HCO3 21.8 mmol/L (22.0-26.0); Arterial MetHb 0.3 % (0.0-1.5); Arterial Total Hemglobin 8.8 g/dl (12.0-18.0); Arterial pCO2 40.6 mmhg (35-45); MODE VENT - AC; Site Right Radial
[2018-03-30] MEDS ORDERED: MICONAZOLE 2% 30 GM CR TOP (21:00)
[2018-03-31] MEDS: ALBUTEROL HFA 8 GM INHALER INH ×4 (01:19→13:26)
[2018-03-31 01:41] LABS: LACTIC ACID 1.3 mmol/L (0.5-2.0)
[2018-03-31 01:58] LABS: CREATINE KINASE 43 IU/L (23-200)
[2018-03-31 04:08] LABS: CK INDEX 15.2; CK-MB 6.52 ng/ml (0.0-2.4)
[2018-03-31 04:09] LABS: TROPONIN-I 0.505 ng/ml (0.000-0.120)
[2018-03-31 05:03] LABS: ADD MAN DIFF? NO
[2018-03-31 05:05] LABS: ABNORMAL IP MESSAGE 1; BASOPHILS % 0.1 % (0.0-2.0); HEMATOCRIT 23.9 % (42.0-52.0); HEMOGLOBIN 7.7 g/dl (14.0-18.0); LYMPHOCYTES # 0.2 10^3/ul (0.8-2.9); LYMPHOCYTES % 1.2 % (15.0-51.0); MEAN CORPUSCULAR HEMOGLOBIN 31.3 pg (29.0-33.0); MEAN CORPUSCULAR HGB CONC 32.2 g/dl (32.0-37.0); MEAN CORPUSCULAR VOLUME 97.2 fl (82.0-101.0); MEAN PLATELET VOLUME 12.7 fl (7.4-10.4); MONOCYTE # 0.1 10^3/ul (0.3-0.9); MONOCYTES % 0.6 % (0.0-11.0); NEUTROPHIL # 15.7 10^3/ul (1.6-7.5); NEUTROPHILS % 97.4 % (39.0-77.0); PLATELET COUNT 119 10^3/UL (140-415); POSITIVE DIFF @See below; RED BLOOD COUNT 2.46 10^6/ul (4.70-6.10); RED CELL DISTRIBUTION WIDTH 23.8 % (11.5-14.5)
[2018-03-31 05:05] LABS: WHITE BLOOD COUNT 16.1 10^3/ul (4.8-10.8)
[2018-03-31 05:30] LABS: CREATINE KINASE 36 IU/L (23-200)
[2018-03-31 05:33] LABS: ALANINE AMINOTRANSFERASE 167 IU/L (13-69); ALBUMIN 2.2 g/dl (3.3-4.9); ALBUMIN/GLOBULIN RATIO 0.73; ALKALINE PHOSPHATASE 130 IU/L (42-121); ANION GAP 12 (5-13); ASPARTATE AMINO TRANSFERASE 193 IU/L (15-46); BILIRUBIN,INDIRECT 0.4 mg/dl (0-1.1); BILIRUBIN,TOTAL 0.4 mg/dl (0.2-1.3); CALCIUM 9.1 mg/dl (8.4-10.2); CARBON DIOXIDE 21 mmol/L (21-31); CHLORIDE 106 mmol/L (97-110); GLUCOSE 153 mg/dl (70-220); MAGNESIUM 2.3 mg/dl (1.7-2.5); POTASSIUM 4.9 mmol/L (3.5-5.1); SODIUM 139 mmol/L (135-144); TOTAL PROTEIN 5.2 g/dl (6.1-8.1)
[2018-03-31 05:36] LABS: LACTIC ACID 0.9 mmol/L (0.5-2.0)
[2018-03-31 05:42] LABS: CK INDEX 15.5; CK-MB 5.58 ng/ml (0.0-2.4)
[2018-03-31 05:46] LABS: BLOOD UREA NITROGEN 140 mg/dl (7-20)
[2018-03-31 05:47] LABS: TROPONIN-I 0.423 ng/ml (0.000-0.120)
[2018-03-31] MEDS: METHYLPREDNISOLONE 125 MG INJ IV ×3 (06:01→12:00)
[2018-03-31] MEDS: PANTOPRAZOLE 40 MG INJ IV (06:01)
[2018-03-31 07:48] LABS: AADO2 Arterial 134.3 mmHg (7.0-24.0); Allen Test ACCEPTAB; Arterial Base Excess -3.8 mmol/L (-3.0-3); Arterial COHb 0.6 % (0.0-3.0); Arterial Fraction of Oxyhgb 97.1 % (93.0-99.0); Arterial HCO3 20.4 mmol/L (22.0-26.0); Arterial MetHb 0.3 % (0.0-1.5); Arterial Total Hemglobin 9.2 g/dl (12.0-18.0); Arterial pCO2 33.6 mmhg (35-45); MODE VENT - AC; Site Right Radial
[2018-03-31] MEDS: DOPamine-D5W 1.6 MG/ML 250 ML IV ×2 (08:13→15:58)
[2018-03-31] MEDS ORDERED: HEPARIN 5,000 UNIT/0.5 ML VIAL (10:38)
[2018-03-31] MEDS: CYANOCOBALAMIN 100 MCG TAB NGT (11:05)
[2018-03-31] MEDS: MICONAZOLE 2% 15 GM CR TOP (11:05)
[2018-03-31] MEDS: HEPARIN SODIUM 5,000 UNIT/ML VIAL SC (11:06)
[2018-03-31] MEDS: DEXTROSE 5%-0.45% NACL 1,000 ML IV (11:08)
[2018-03-31 12:47] LABS: LACTIC ACID 1.2 mmol/L (0.5-2.0)
[2018-03-31] MEDS: CEFEPIME 2GM/50 ML (PMX) 50 ML IVPB (14:00)
[2018-03-31] MEDS: CASPOFUNGIN 50 MG in SOD CHLORIDE 0.9% 250 ML IVPB (15:00)
[2018-03-31] MEDS: morphine (DRIP) 100 MG/100 ML 100 ML IV (17:06)
== END 2018-03-31 18:39 | disposition expired | DRG 314 ==
LOC: ICU 11:39
PROVIDERS: Family Medicine
PROC: 05PY33Z Removal of Infusion Device from Upper Vein, Percutaneous Approach (ICD-10-PCS; principal; 2018-03-30)
PROC: 5A1935Z Respiratory Ventilation, Less than 24 Consecutive Hours (ICD-10-PCS; 2018-03-30)
PROC: 0BH17EZ Insertion of Endotracheal Airway into Trachea, Via Natural or Artificial Opening (ICD-10-PCS; 2018-03-30)
DX: T82.7XXA Infection and inflammatory reaction due to other cardiac and vascular devices, implants and grafts, initial encounter (principal); J18.9 Pneumonia, unspecified organism; A41.89 Other specified sepsis; R65.21 Severe sepsis with septic shock; N18.6 End stage renal disease; J96.20 Acute and chronic respiratory failure, unspecified whether with hypoxia or hypercapnia; I50.33 Acute on chronic diastolic (congestive) heart failure; N17.9 Acute kidney failure, unspecified; B49 Unspecified mycosis; I13.2 Hypertensive heart and chronic kidney disease with heart failure and with stage 5 chronic kidney disease, or end stage renal disease; G93.1 Anoxic brain damage, not elsewhere classified; I46.9 Cardiac arrest, cause unspecified; Z66 Do not resuscitate; Z99.2 Dependence on renal dialysis; F03.90 Unspecified dementia, unspecified severity, without behavioral disturbance, psychotic disturbance, mood disturbance, and anxiety; J44.9 Chronic obstructive pulmonary disease, unspecified; J84.10 Pulmonary fibrosis, unspecified; I48.91 Unspecified atrial fibrillation
CPT/HCPCS: 36600; 70450; 71045; 80053; 80162; 82550; 82553; 82803; 83605; 83735; 84484; 85025; 87040; 87070; 87081; 87086; 89220; 90686; 93005; 93308; 94002; 94003; 94640; 94770